=== PATIENT | male | born 1945 | race Caucasian/White ===

== ENCOUNTER 2017-10-25 20:43 | Emergency (ER) | payer BC, OTHER ==
[2017-10-25 22:35] VITALS: BP 168/95
== END 2017-10-25 22:36 | disposition home or self-care (01) ==
LOC: ED 20:43
DX: R04.0 Epistaxis (principal); E78.00 Pure hypercholesterolemia, unspecified

== ENCOUNTER 2018-07-10 21:13 | Emergency (ER) | payer BC, OTHER ==
[~2018-07-10] VITALS: Ht 172.7 cm; Wt 113.4 kg
[2018-07-10 21:31] VITALS: BP 172/99; Ht 172.7 cm; Wt 113.4 kg
== END 2018-07-10 22:58 | disposition home or self-care (01) ==
LOC: ED 21:13
DX: F10.129 Alcohol abuse with intoxication, unspecified (principal); I10 Essential (primary) hypertension; E78.00 Pure hypercholesterolemia, unspecified